=== PATIENT | male | born 1995 | race Caucasian/White ===

== ENCOUNTER 2023-09-02 05:02 | Emergency (ER) | payer OTHER, SELFPAY ==
[2023-09-02 05:02] VITALS: BP 141/88; PULSE 98; RESP 15; TEMP 36.6; O2SAT 99; BMI 23.3
--- NOTE | 2023-09-02 05:17 | EKG12_ITS ---
Test Reason : CP Blood Pressure : / mmHG Vent. Rate : 087 BPM Atrial Rate : 087 BPM P-R Int : 150 ms QRS Dur : 088 ms QT Int : 390 ms P-R-T Axes : 058 043 035 degrees QTc Int : 469 ms Normal sinus rhythm with sinus arrhythmia Normal ECG Confirmed by Galo Avila ([id number]), photograph editor JOVANA ESPARZA ([id number]) on 09/03/2023 1:11:10 PM Referred By: LANNY Confirmed By:Galo Avila
--- NOTE | 2023-09-02 05:17 | ED.VIS.CHEST ---
HPI History of Present Illness Chief Complaint: Chest Pain Informant: patient Narrative Narrative: Patient presents 5 AM for an episode of chest tightness that woke him up from sleep, states it was radiating to his jaw was achy. He jumped out of bed real quick and was on his feet noticed that his vision was a little blurry, after 2 or 3 minutes everything resolved without any other treatment. Denies any other symptoms. No palpitations, presyncope, dyspnea, focal neurologic symptoms otherwise. He states he has had acid reflux in the past, he has not been taking any medication for recently, and feels like it may have been giving him this chest tightness and jaw discomfort in the past; he states the blurry vision threw him off and is why he came in. He is asymptomatic at this time. CVD Risk Factors: Negative for Hypertension, Diabetes, Hypercholesterolemia or Smoking PFSH PFS Medical History no medical history no medical history Home Medications ?Medication ?Instructions ?Recorded ?Last Taken ?Type NK 09/02/23 Unknown History Allergy/AdvReac Type Severity Reaction Status Date / Time No Known Allergies Allergy Verified 09/02/23 05:08 Social History Smoking Status: Never smoker ROS ROS ED Constitutional Constitutional ED: Denies chills or fever(s) Eyes Eyes: Reports blurry vision bilateral (Transient, resolved); Denies diplopia ENT ENT ED: Denies rhinorrhea or sore throat Cardiovascular Cardiovascular: Reports as per HPI, chest pain and radiating jaw, neck or arm pain; Denies palpitations Respiratory/Chest Respiratory/Chest: Denies cough or dyspnea Gastrointestinal Gastrointestinal: Denies abdominal pain, diarrhea, nausea or vomiting Genitourinary Genitourinary ED: Denies dysuria or hematuria Musculoskeletal Musculoskeletal: Denies back pain or neck pain Integumentary Denies abscess or rash Neurologic Neurologic: Denies headache(s), paresthesias or weakness Psychiatric Psychiatric: Denies suicidal thoughts EXAM Physical Exam Const Vital Signs: 09/02/23 05:02 09/02/23 05:08 09/02/23 05:17 Temperature 97.9 F Temperature Source Oral Pulse Rate 98 Respiratory Rate 15 Respiratory Effort Normal Non-Labored Blood Pressure 141/88 H Blood Pressure Mean 105 Pulse Ox 99 Oxygen Delivery Method Room Air Room Air Positive well nourished and well developed General Appearance ED: well developed and NAD HEENT Reports moist mucous membranes normocephalic and atraumatic Eyes PERRL and EOMs intact bilaterally Neck full ROM and supple Resp normal respiratory effort and clear to auscultation bilaterally Cardio regular rate, regular rhythm and no murmurs GI non-tender and non-distended Auscultation: normoactive bowel sounds Palpation: soft Back/Spine no CVA tenderness General Back: other FROM Extremity normal to inspection General Extremety ED: Negative for edema, pulses abnormal or tenderness General Extremity: Negative for edema or pulses abnormal Neuro oriented x3, CN's II-XII intact bilaterally and no sensory deficits noted Sensorium / Orientation: awake and alert Motor Exam: strength 5/5 throughout Skin no rashes or lesions noted and no wounds Heart Score History: Slightly/Non-Suspicious ECG: Normal Age: </= 45 years Risk Factors: No Risk Factors Troponin: </= Normal Limit Score: 0 MDM MDM MDM Narrative Medical decision making narrative: Low suspicion for this being cardiac in this young healthy 28-year-old male, but cardiac workup obtained in order to rule out acute coronary syndrome in context of his symptoms. EKG is normal, troponin is normal, his blood counts are unremarkable, 2 view chest x-ray shows no sign of pneumothorax, widened mediastinum, infiltrate, or other acute abnormality. On reevaluation he is doing fine. He was given a dose of pantoprazole 40 mg, and I would be comfortable with him going home and following up with his doctor, taking Pepcid or Nexium/Prilosec [id number] once daily in the meantime. He is comfortable with that plan. Lab Data Attestation: I reviewed the patient's lab results. Labs: Laboratory Results - last 24 hr 09/02/23 05:38 WBC 6.0 RBC 5.31 Hgb 15.1 Hct 47.5 MCV 89.5 MCH 28.4 MCHC 31.8 L RDW Std Deviation 42.6 RDW Coeff of Guillermina 13.1 Plt Count 195 MPV 11.3 Immature Gran % (Auto) 0.300 Neut % (Auto) 50.6 Lymph % (Auto) 32.9 [place] % (Auto) 9.5 Eos % (Auto) 5.9 H Baso % (Auto) 0.8 Absolute Neuts (auto) 3.0 Absolute Lymphs (auto) 1.97 Nucleated RBC % 0 Sodium 139 Potassium 3.4 L Chloride 104 Carbon Dioxide 28.0 Anion Gap 7 BUN 12 Creatinine 1.27 Estim Creat Clear Calc 95.05 Est GFR (MDRD) Af Amer 87 Est GFR (MDRD) Non-Af 72 BUN/Creatinine Ratio 9.4 L Glucose 143 H Calcium 9.5 Troponin I High Sens < 3 L Rhythm Strip Rhythm Strip: Sinus Rhythm Rate: 98 Ectopy: None EKG Initial EKG: Attestation: I personally reviewed and interpreted this EKG as follows: Interpretation: Sinus Rhythm and No Acute Injury Pattern Comments: Normal EKG Prior: No Prior Discharge Plan Triage Chief Complaint: Chest Pain ED Provider: Cheng Huerta Dx/Rx/DC Orders Clinical Impression: Chest pain, unspecified, Blurry vision, bilateral Instructions: ED Chest Pain, Uncertain Cause Prescriptions: No Action NK Primary Care Provider: Care Physician,No Primary Referrals: Doctor,Your [Non-Staff] - 1 Week if not improving Activity Restrictions/Additional Instructions: Consider taking a daily Pepcid or Prilosec or Nexium if you frequently experience reflux symptoms. Print Language: Ukrainian Disposition Disposition: Home, Self Care
--- NOTE | 2023-09-02 05:45 | RAD_ITS ---
EXAM: XR CHEST, 2 VIEWS CLINICAL INDICATION: chest pain chest pain TECHNIQUE: Frontal and lateral views of the chest. COMPARISON: No relevant prior studies available. FINDINGS: LUNGS AND PLEURAL SPACES: Unremarkable. No consolidation or edema. No pneumothorax. No effusion. HEART: Unremarkable. Cardiac silhouette not enlarged. MEDIASTINUM: Central airways and mediastinal contour are unremarkable. BONES/JOINTS: Unremarkable. No acute fracture. SOFT TISSUES: Unremarkable. RAD/Chest PA and Lateral IMPRESSION: No radiographic evidence of acute cardiopulmonary disease. Electronically Signed: Malick Bronson MD at 6:59 EDT Reading Location ID and State: [facility] / [place] , Service support ,
[2023-09-02 05:46] LABS: Absolute Lymphocyte Count 1.97 X10^3/uL (0.83-4.51); Basophil# 0.05 X10^3/uL; Basophil% 0.8 % (0-1); Eosinophil# 0.35 X10^3/uL; Eosinophils% 5.9 % (0-5); Hematocrit 47.5 % (40-54); Hemoglobin 15.1 g/dL (13.0-16.5); Lymphocyte # 1.97 X10^3/ul (0.83-4.51); Lymphocyte % 32.9 % (19-41); Mean Corp Hgb Conc 31.8 g/dL (32-36); Mean Corpuscular Hgb 28.4 pg (27.0-32.0); Mean Corpuscular Volume 89.5 fL (80-94); Mean Platelet Vol. 11.3 fl (6.2-12.0); Monocyte# 0.57 X10^3/uL; Monocyte% 9.5 % (0-10); NRBC Flagged by Analyzer 0 % (0-5); Neutrophil # 3.02 X10^3/uL (2.7-7.7); Neutrophil % 50.6 % (47-70); Platelet Count 195 K/mm3 (150-450); RBC Distribution Width CV 13.1 % (11.6-14.6); RBC Distribution Width SD 42.6 fl (35.1-43.9); Red Blood Count 5.31 M/mm3 (4.6-6.2)
[2023-09-02] MEDS: Pantoprazole Sodium 40 MG Tablet PO (05:58)
[2023-09-02 06:18] LABS: Anion Gap 7 (5-15); BUN 12 mg/dL (7-18); BUN/Creat Ratio 9.4 RATIO (10-20); Calcium,Total 9.5 mg/dL (8.5-10.1); Chloride 104 mmol/L (98-107); Creatinine, Serum 1.27 mg/dL (0.70-1.30); EST Glomerular Filtration Rate 72 mL/min (>60); Est Glom Filt Rate - Afr Amer 87 mL/min (>60); Estimated Creatinine Clearance 95.05 ml/min; Glucose 143 mg/dL (74-106); Potassium 3.4 mmol/L (3.5-5.1); Sodium Level 139 mmol/L (136-145); Troponin-I HS < 3 pg/mL (3.0-78.0)
[2023-09-02 06:57] VITALS: BP 116/54; PULSE 68; RESP 16; TEMP 36.3; O2SAT 99
== END 2023-09-02 06:57 | disposition home or self-care (01) ==
LOC: ED 05:34
PROVIDERS: Emergency Provider Emergency Medicine; Visit Provider Emergency Medicine
DX: R07.9 Chest pain, unspecified (principal); H53.8 Other visual disturbances
CPT/HCPCS: 71046; 80048; 84484; 85025; 93005; 99284; A4216

== ENCOUNTER 2024-04-20 17:32 | Emergency (ER) | payer OTHER, SELFPAY ==
[2024-04-20 17:33] VITALS: BP 148/100; PULSE 92; RESP 18; TEMP 36.6; O2SAT 99; BMI 23.8
--- NOTE | 2024-04-20 19:05 | ED.RN ---
Dr. Nuñez bedside
--- NOTE | 2024-04-20 19:30 | ED.VIS.GI ---
HPI HPI - GI History of Present Illness Chief Complaint: GI Bleed Informant: patient Nausea/Vomiting/Emesis GI Symptom: Negative for Nausea or Vomiting Diarrhea/Melena/Hematochezia GI Symptom: Positive for Hematochezia Onset: Weeks (2) Stool Quality: Positive for BRB per rectum Associated Symptoms Associated Symptoms: Negative for Dysuria, Frequency or Hematuria Narrative Narrative: Patient presents with rectal bleeding that has been getting worse over the past 2 weeks. Patient states he noted some bright red blood in the stool. Patient states that this is getting more frequent. Patient denies any abdominal pain. Patient denies any diarrhea. Patient denies any nausea or vomiting. Patient denies any pain with his bowel movements. Patient denies any lightheadedness or dizziness. Patient denies any urinary complaints. [facility] Medical History (Updated 04/20/24 @ 22:[address] David Nuñez DO) GERD (gastroesophageal reflux disease) Medical History no medical history Home Medications ?Medication ?Instructions ?Recorded ?Last Taken ?Type NK 09/02/23 Unknown History Allergy/AdvReac Type Severity Reaction Status Date / Time No Known Allergies Allergy Verified 04/20/24 17:33 Surgical History no surgical history no surgical history Social History Smoking Status: Never smoker ROS ROS ED Constitutional Constitutional ED: Denies chills or fever(s) Eyes Eyes: Denies blurry vision or change in vision ENT ENT ED: Denies rhinorrhea or sore throat Cardiovascular Cardiovascular: Reports chest pain; Denies palpitations Respiratory/Chest Respiratory/Chest: Denies cough or dyspnea Gastrointestinal Gastrointestinal: Denies nausea or vomiting Genitourinary Genitourinary ED: Denies dysuria or hematuria Musculoskeletal Musculoskeletal: Denies back pain or neck pain Integumentary Denies abscess or rash Neurologic Neurologic: Denies headache(s) or weakness Allergic/Immunologic Allergic/Immunologic ED: Denies mouth swelling or urticaria EXAM Physical Exam Const Vital Signs: 04/20/24 17:33 04/20/24 19:32 04/20/24 21:00 Temperature 97.8 F Temperature Source Temporal Pulse Rate 92 77 80 Respiratory Rate 18 16 14 Blood Pressure 148/100 H 138/88 H 122/88 H Blood Pressure Mean 116 104 99 Pulse Ox 99 99 97 Oxygen Delivery Method Room Air Room Air Room Air Positive well nourished and well developed General Appearance ED: well developed and NAD HEENT Reports moist mucous membranes Neck supple and no JVD Resp normal respiratory effort and clear to auscultation bilaterally Cardio regular rate and regular rhythm GI non-tender and non-distended Auscultation: normoactive bowel sounds Palpation: soft Rectal Exam: visual inspection normal, normal sphincter tone, heme positive stool and other Other Details: There was small amount of light brown stool. ; Negative for external hemorrhoid(s) Neuro CN's II-XII intact bilaterally, moves all extremities and no sensory deficits noted Sensorium / Orientation: alert Motor Exam: strength 5/5 throughout MDM MDM MDM Narrative Medical decision making narrative: Differential diagnosis includes lower gastrointestinal bleeding, internal hemorrhoid, external hemorrhoid, and proctitis. Since the patient not having any abdominal pain, I do not feel this is from diverticulitis or colitis. CBC will be obtained to assess for leukocytosis and anemia. Basic metabolic profile will be obtained to assess for electrolyte abnormality and renal function. Lab Data Attestation: I reviewed the patient's lab results. Lab results narrative: CBC was reviewed and was within normal limits. Basic metabolic profile was reviewed and was within normal limits. Labs: Laboratory Results - last 24 hr 04/20/24 19:40 WBC 9.0 RBC 5.25 Hgb 15.0 Hct 45.9 MCV 87.4 MCH 28.6 MCHC 32.7 RDW Std Deviation 41.9 RDW Coeff of Guillermina 13.0 Plt Count 203 MPV 11.0 Immature Gran % (Auto) 0.300 Neut % (Auto) 61.7 Lymph % (Auto) 24.8 [place] % (Auto) 8.8 Eos % (Auto) 3.7 Baso % (Auto) 0.7 Absolute Neuts (auto) 5.6 Absolute Lymphs (auto) 2.23 Nucleated RBC % 0 Sodium 140 Potassium 3.8 Chloride 107 Carbon Dioxide 30.0 Anion Gap 3 L BUN 12 Creatinine 0.92 Estim Creat Clear Calc 131.21 Est GFR (MDRD) Af Amer 125 Est GFR (MDRD) Non-Af 104 BUN/Creatinine Ratio 13.0 Glucose 104 Calcium 9.3 Treatment and Re-Evaluation :: Patient was advised of his findings. With rectal bleeding for 2 weeks but still having a normal hemoglobin of 15, I do not feel the patient would require admission for gastrointestinal bleeding. I feel the patient is stable to follow-up as an outpatient. Patient was given referral for primary care physician as well as referral for gastroenterology. Patient was instructed to use [id number] Preparation H as needed. Patient was instructed to return if worse in any way. Patient understood and was agreeable with plan. All questions were answered. Discharge Plan Triage Chief Complaint: GI Bleed ED Provider: David Nuñez Dx/Rx/DC Orders Clinical Impression: Acute lower gastrointestinal bleeding, Elevated blood pressure reading Instructions: ED Lower GI Bleeding (Stable) Prescriptions: No Action NK Primary Care Provider: Care Physician,No Primary Referrals: Luis Alcantar MD [Med Staff - Active Staff] - 5-7 Days Brett Jimenez DO [Med Staff - Active Staff] - 5-7 Days Care Physician,No Primary [Primary Care Provider] - Activity Restrictions/Additional Instructions: You may use [id number] Preparation H or Anusol as needed. Print Language: Norwegian Disposition Disposition: Home, Self Care
[2024-04-20 19:32] VITALS: BP 138/88; PULSE 77; RESP 16; O2SAT 99
[2024-04-20 19:46] LABS: Absolute Lymphocyte Count 2.23 X10^3/uL (0.83-4.51); Absolute Neutrophil Count 5.6 X10^3/uL (2.0-7.7); Basophil# 0.06 X10^3/uL; Basophil% 0.7 % (0-1); Eosinophil# 0.33 X10^3/uL; Eosinophils% 3.7 % (0-5); Hematocrit 45.9 % (40-54); Lymphocyte # 2.23 X10^3/ul (0.83-4.51); Lymphocyte % 24.8 % (19-41); Mean Corp Hgb Conc 32.7 g/dL (32-36); Mean Corpuscular Hgb 28.6 pg (27.0-32.0); Mean Corpuscular Volume 87.4 fL (80-94); Monocyte# 0.79 X10^3/uL; Monocyte% 8.8 % (0-10); NRBC Flagged by Analyzer 0 % (0-5); Neutrophil # 5.56 X10^3/uL (2.7-7.7); Neutrophil % 61.7 % (47-70); Platelet Count 203 K/mm3 (150-450); RBC Distribution Width SD 41.9 fl (35.1-43.9); Red Blood Count 5.25 M/mm3 (4.6-6.2)
[2024-04-20 20:00] LABS: Anion Gap 3 (5-15); BUN 12 mg/dL (7-18); Calcium,Total 9.3 mg/dL (8.5-10.1); Chloride 107 mmol/L (98-107); Creatinine, Serum 0.92 mg/dL (0.70-1.30); EST Glomerular Filtration Rate 104 mL/min (>60); Est Glom Filt Rate - Afr Amer 125 mL/min (>60); Estimated Creatinine Clearance 131.21 ml/min; Glucose 104 mg/dL (74-106); Potassium 3.8 mmol/L (3.5-5.1); Sodium Level 140 mmol/L (136-145)
--- NOTE | 2024-04-20 20:53 | ED.RN ---
Patient given update by this RN.
[2024-04-20 21:00] VITALS: BP 122/88; PULSE 80; RESP 14; O2SAT 97
--- NOTE | 2024-04-20 21:04 | CM.ED ---
Social Work Reason for visit: No PCP Patient verified that he does not currently have a PCP. [facility] provider directory given. No further needs identified. Deb Henry, ADMINISTRATIVE ASSISTANT, SHERIFF SERGEANT
[2024-04-20 22:40] VITALS: BP 109/75; PULSE 76; RESP 18; TEMP 36.8; O2SAT 96
== END 2024-04-20 22:41 | disposition home or self-care (01) ==
PROVIDERS: Emergency Provider Emergency Medicine; Visit Provider Emergency Medicine
DX: K92.1 Melena (principal); R19.7 Diarrhea, unspecified; R03.0 Elevated blood-pressure reading, without diagnosis of hypertension; K21.9 Gastro-esophageal reflux disease without esophagitis
CPT/HCPCS: 80048; 82274; 85025; 99283; A4216

== ENCOUNTER → 2024-05-10 | Outpatient (CLI) | payer OTHER, SELFPAY ==
[2024-05-14 00:07] LABS: Pancreatic Elastase, Fecal > 800 (>200)
[2024-05-14 09:07] LABS: Calprotectin, Stool 32 ug/g (0-120)
== END | disposition home or self-care (01) ==
LOC: LABSPEC 12:39
PROVIDERS: Referring Provider Student in an Organized Health Care Education/Training Program; Visit Provider Student in an Organized Health Care Education/Training Program
DX: K21.9 Gastro-esophageal reflux disease without esophagitis (principal); K62.5 Hemorrhage of anus and rectum; K58.9 Irritable bowel syndrome, unspecified
CPT/HCPCS: 82653; 83630; 83993; 87177; 87209; 87329; 87506